=== PATIENT | female | born 1995 | race Caucasian/White ===

== ENCOUNTER 2019-11-20 16:56 | Inpatient (IN) | payer SELFPAY ==
[~2019-11-20] VITALS: Ht 152.4 cm; Wt 91.2 kg
--- NOTE | 2019-11-20 17:00 | NUR ---
yany cct placed at patients room to do 05/31 sitter. pts belongings removed and placed in belongings bag. pt cooperative at this time.
[2019-11-20] MEDS ORDERED: SODIUM CHLORIDE 0.9% 1000ML 1,000 ML IV STA (17:19)
[2019-11-20] MEDS ORDERED: CHARCOAL/SORBITOL LIQD 25 GM/120 ML TUBE NG STA (17:19)
[2019-11-20] MEDS ORDERED: ACTIVATED CHARCOAL 25 GM/120 ML ONE (17:24)
[2019-11-20] MEDS ORDERED: ONDANSETRON HCL INJ 2MG/ML 2ML 2 MG/ML VIAL IV STA (17:28)
[2019-11-20] MEDS ORDERED: SODIUM CHLORIDE FLUSH 10 ML SYR INJ PRN (17:30)
--- NOTE | 2019-11-20 17:36 | Emergency Department Note ---
History of Present Illnes History of Present Illness Chief Complaint: suicidal attempt- took 30 pills of prozac 25 mg s/p transient new boyfriend left at a hotel History of Present Illness This is a 24 year old female. was doing well prior to this. pt just hitch a ride with stranger from [place] in exchange for valium. 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 Any updates have been documented here. Physical Exam Physical Exam CONSTITUTIONAL HENT EYES NECK PULMONARY CARDIOVASCULAR GASTROINTESTINAL GENITOURINARY SKIN MUSCULOSKELETAL NEUROLOGICAL PSYCHOLOGICAL Assessment & Plan Reassessment Reassessment POISON CONTROL WAS NOTIFIED AND SAID TO ADMIT TO ICU TO MONITOR PT FOR PROLONG QT INTERVAL/SEIZURES. . SPOKE TO DR SINGH AND ACCEPTED ADMISSION OF PT Assessment & Plan Final Impression: (1) Drug overdose (2) Suicide attempt Medications in the ED Charcoal 50 gm STK-MED ONCE .ROUTE ; Start 11/20/19 at 17:24; Stop 11/20/19 at 17:21; Status DC Sodium Chloride 10 ml PRN PRN INJ IV SITE FLUSH; Start 11/20/19 at 17:30; Stop 12/20/19 at 17:29; Status UNV Sodium Chloride 1,000 ml @ 150 mls/hr [id number] STAT IV ; Start 11/20/19 at 17:19; Stop 11/20/19 at 23:58 Charcoal/Sorbitol 50 gm NOW STAT NG ; Start 11/20/19 at 17:19; Stop 11/20/19 at 17:28; Status DC DASIA MARIN Nov 20, 2019 17:36
[2019-11-20] MEDS ORDERED: SODIUM CHLORIDE 0.9% 1000ML 1,000 ML ONE (18:33)
--- NOTE | 2019-11-20 18:33 | NUR ---
A [facility] FOUND ON THE FLOOR WITH PATIENTS NAME. PT STATES SHE WAS THERE EARLIER TODAY AND TOLD THEM SHE WAS SUICIDAL BUT AFTER BEING THERE FOR 3 HOURS PT LEFT AND CAME HERE. PT STATED SHE TOOK THE PILLS ON THE DRIVE TO HERE.
[2019-11-20] MEDS ORDERED: ONDANSETRON HCL INJ 2MG/ML 2ML 2 MG/ML VIAL IV PRN (19:30)
[2019-11-20] MEDS: SODIUM CHLORIDE 0.9% 1000ML 1,000 ML IV SCH (20:53)
[2019-11-21] VITALS (11 sets, daily range): BP systolic 89–117; BP diastolic 60–72
--- NOTE | 2019-11-21 01:00 | NUR ---
Received pt from ER. Pt is on suicide precautions, all items removed from room. EKG leads left on patient to monitor QT interval d/t potential effects from large quantity of Prozac taken. Pt is a 1:1 and being monitored closely. Pt in bed resting at this time.
[2019-11-21] MEDS: SODIUM CHLORIDE 0.9% 1000ML 1,000 ML IV SCH (03:37)
--- NOTE | 2019-11-21 07:06 | NUR ---
Rec'd patient supine in bed; no present concerns. Alert, oriented, aware of present location and situation. Pleasant and cooperative. SR on the ECG. Hemodynamicall stable and afebrile. Lung sounds clear. Patient resting, eyes closed.
--- NOTE | 2019-11-21 08:21 | NUR ---
GAVE PACKET OF INFORMATION WITH [facility] [employer] FOR ASSISTANCE WITH LOW TO NO INCOME TO PATIENT. RESOURCES THAT PATIENT MAY BE ABLE TO FOLLOW UP UPON DISCHARGE. PT EDUCATED ON EACH RESOURCE AND UNDERSTANDING HOW TO FOLLOW UP TO SEE IF QUALIFIED FOR EACH RESOURCE.
[2019-11-21] MEDS ORDERED: ONDANSETRON HCL INJ 2MG/ML 2ML 2 MG/ML VIAL IV PRN (12:15)
[2019-11-21] MEDS ORDERED: HYDRALAZINE HCL 20 MG/ML VIAL IV PRN (12:15)
[2019-11-21 13:47] LABS: BASOPHILS # (AUTO) 0.1 (0.0-0.1); BASOPHILS % 1.1 % (0.0-1.0); EOSINOPHILS # (AUTO) 0.5 (0.0-0.4); EOSINOPHILS % 6.5 % (0.0-6.0); HEMATOCRIT 36.6 % (34.2-44.1); HEMOGLOBIN 11.4 g/dL (12.0-16.0); LYMPHOCYTES # (AUTO) 2.5 (1.0-3.2); MEAN CORPUSCULAR HEMOGLOBIN 25.5 pg (28-32); MEAN CORPUSCULAR HGB CONC 31.1 g/dL (31-35); MEAN CORPUSCULAR VOLUME 81.9 fL (81-99); MONOCYTES # (AUTO) 0.4 (0.2-0.8); MONOCYTES % 5.8 % (4.4-11.3); NEUTROPHILS # (AUTO) 3.9 (2.1-6.9); NEUTROPHILS % 52.3 % (38.7-80.0); PLATELET COUNT 246 x10e3/uL (140-360); RED BLOOD COUNT 4.47 x10e6/uL (3.6-5.1); RED CELL DISTRIBUTION WIDTH 15.4 % (11.7-14.4)
[2019-11-21] MEDS: NICOTINE 21 MG/EA PATCH TOP PRN (14:00)
[2019-11-21] MEDS: ACETAMINOPHEN 325 MG TAB PO PRN (14:01)
[2019-11-21 14:08] LABS: ALANINE AMINOTRANSFERASE 14 IU/L (0-55); ALBUMIN 3.2 g/dL (3.5-5.0); ALBUMIN/GLOBULIN RATIO 1.1 (0.8-2.0); ALKALINE PHOSPHATASE 56 IU/L (40-150); ANION GAP 9.6 mmol/L (8-16); BLOOD UREA NITROGEN 7 mg/dL (7-26); BUN/CREATININE RATIO 11 (6-25); CARBON DIOXIDE 24 mmol/L (22-29); CHLORIDE 110 mmol/L (98-107); CREATININE, SERUM 0.63 mg/dL (0.57-1.11); EST GLOMERULAR FILTRATION RATE > 60 ML/MIN (60-); GLUCOSE 103 mg/dL (74-118); POTASSIUM 3.6 mmol/L (3.5-5.1); SODIUM 140 mmol/L (136-145)
--- NOTE | 2019-11-21 15:18 | NUR ---
Per Dr Helene Ochoa, patient is medically stable to be transferred to a psychiatric facility. Spoke with [facility]ison [facility], who states the case is closed, no holds required from them. Spoke with the MAT team and they are en route to assess the patient.
--- NOTE | 2019-11-21 15:36 | NUR ---
SPOKE WITH NURSE, DOCTOR MEDICALLY CLEARED CALLED [facility], THEY CLEARED NURSE CALLED MAT TEAM, I CALL AND CONFIRMED AND SPOKE WITH MERLYN AT THE [facility] AND SHE STATES THE COVID RESULTS ARE NECESSARY TO SEND OUT THE SENIOR UI DESIGNER, SHE STATES SHE IS NOT SYMPTOMATIC AND PASSES THE SCREENING QUESTIONS, WILL SEND RESULTS TO CONFIRM. WILL KEEP IN CONTACT WITH MAT TEAM TO FOLLOW THROUGH ON PLACEMENT IF THEY DETERMINE IT IS NEEDED.
[2019-11-21] MEDS: THIAMINE HCL 100 MG TAB PO SCH (16:03)
[2019-11-21] MEDS: FAMOTIDINE 20 MG/2 ML VIAL IV SCH (16:03)
[2019-11-21] MEDS: MULTIVITAMINS/MINERALS TAB PO SCH (16:03)
[2019-11-21 17:12] LABS: PREGNANCY TEST, URINE NEGATIVE (NEGATIVE)
[2019-11-21 17:15] LABS: AMPHETAMINES SCREEN,URINE NEGATIVE (NEGATIVE); BENZODIAZEPINES SCREEN,URINE POSITIVE (NEGATIVE); PHENCYCLIDINE SCREEN,URINE NEGATIVE (NEGATIVE)
[2019-11-21] MEDS ORDERED: CHLORDIAZEPOXIDE HCL 25 MG CAP PO SCH (18:00)
--- NOTE | 2019-11-21 18:45 | NUR ---
MAT Team has patient on waiting list at [facility]. Report called to [facility] for Room 114. Awaiting sitter to receive patient due to suicidal risk.
--- NOTE | 2019-11-21 18:47 | Consultation ---
DATE OF CONSULTATION: Pulmonary Critical Care Consultation CHIEF COMPLAINT: Overdose with Prozac. HISTORY OF PRESENT ILLNESS: The patient is 24-year-old woman. She has a history of some psychiatric problems before including depression. She has attempted suicide before. She also has had some problem with substance abuse. She reports recent loss in her life. Apparently, her brother in 2011. She also had a sister, who in 2018. Her best friend recently from a heroin overdose. She traveled from [place] to [place] with a friend, who apparently abandoned her in the hotel room. She went to [facility] yesterday with suicidal ideation, but remained in the waiting area. She felt the wait was too long and went home. She subsequently took 25 Prozac tablets at about 4:45 yesterday. She then came to our emergency department. She was evaluated in the emergency department and then admitted to the intensive care unit for monitoring. She has remained on telemetry, but has not had any arrhythmias. She still reports some anxiety and has some nervousness. She still feels depressed. PAST MEDICAL HISTORY: 1. Depression. 2. Prior suicide attempts. PAST SURGICAL HISTORY: Tonsillectomy. FAMILY HISTORY: She has a history of suicide in her family. SOCIAL HISTORY: The patient smokes about pack of cigarettes a day. She drinks about half a pint a day and quit 2 days ago. She was a drug user previously, but has not been using drugs recently. ALLERGIES: NO KNOWN DRUG ALLERGIES. REVIEW OF SYSTEMS: The patient is afebrile. She has no headache. She has no neck pain. She has no chest pain. She is not complaining of cough or difficulty breathing. She has no abdominal pain. She has no nausea or vomiting. She has no leg edema. PHYSICAL EXAMINATION: VITAL SIGNS: The patient is afebrile. Vital signs are stable. She does have some anxiety. HEENT: Shows no facial swelling or erythema. CARDIAC: Reveals regular rate and rhythm with normal S1 and S2. LUNGS: Auscultation of lungs reveals clear breath sounds bilaterally. There is no wheezing. ABDOMEN: Soft and nontender. There is no rebound or guarding. EXTREMITIES: Shows no leg edema or calf tenderness. There is no cyanosis or clubbing. SKIN: Shows no rashes. NEUROLOGICAL: Shows no focal abnormalities. LABORATORY DATA: BUN to creatinine ratio is normal. Other electrolytes within normal limits. Albumin is 3.2. White blood cell count is 7.4. The hemoglobin is 11.4. The platelet count is 246. IMPRESSION: 1. Drug overdose with Prozac. 2. Suicidal ideation. 3. Alcohol use. PLAN: 1. The patient is medically cleared for transfer to a psychiatric facility. She remains with suicidal ideation. 2. The patient requires some multivitamins of thiamin. 3. Librium as needed. 4. Await evaluation by Psychiatry. MD KRISHNA Hendrickson/NAA /[id number]
--- NOTE | 2019-11-21 19:10 | NUR ---
BEDSIDE SHIFT REPORT GIVEN BY DAY RN. PT IS ALERT AND ORIENTED X3. PT OVERDOSE ON PROZAC- WAS IN MICU NOW TRANSFERRED TO 114 WITH SITTER FOR SUICIDE PRECAUTIONS.RESPIRATIONS ARE EVEN AND UNLABORED. TELE ON . 20 G SL RT AC. PT DENIES PAIN. PT VOIDING WITHOUT DIFFICULTY. PT WATCHING TV. CALL LIGHT WITHIN REACH.
--- NOTE | 2019-11-21 19:38 | Consultation ---
DATE OF CONSULTATION: 11/21/2019 Psychiatric Consultation REASON FOR CONSULTATION: To evaluate patient's suicide attempt. HISTORY OF PRESENT ILLNESS: The patient is a 24-year-old female, admitted to the hospital for drug overdose and suicide attempt. Psychiatric consultation is called to evaluate the patient for depression and suicide attempt and drug abuse. Upon evaluation today, patient is found to be sitting in the ICU room. She is alert, awake, and oriented to situation. Sitter is in the room with her. She is alert, awake, and oriented to situation, is calm and cooperative. The patient admits that she has been feeling very depressed. She admits to overdose on 25 pills of Prozac to take her life due to multiple reasons, namely that she was having difficulty getting clean from alcohol and drugs. She recently moved from [place] two days ago to meet a raul, who offered her Valium, he left her. The patient felt overwhelmed and frustrated. She took the Xanax and was driving after she was at hospital, left [place] and drove to [facility]. The patient reports depression. Denies any suicidal or homicidal ideation at this time. Reports intermittent sleep issues, but denies any appetite issues. She denies any hallucinations. The patient claims she drinks five days a week, about half a pint to a pint of vodka a day, last drink was yesterday. She has history of bipolar, attempted suicide 13 times in the past. She has family history of psych issues. Her brother committed suicide. She is willing to go to psychiatric hospital. PAST PSYCHIATRIC HISTORY: The patient has history of bipolar. She attempted suicide 13 time. Drinks alcohol 5 days a week about half a pint to a pint a day of vodka, last drink was yesterday. She takes her Valium, which is not hers and also marijuana. FAMILY HISTORY: Father committed suicide. SOCIAL HISTORY: The patient is currently homeless. MENTAL STATUS EXAM: The patient is a young female. She is alert, awake, and oriented to situation. Mood is depressed. Affect congruent with mood. Psychomotor status retardation. Denies suicidal or homicidal ideation. Denies any hallucination. Thought process is concrete. No delusion elicited. Insight and judgment are fair. Memory appears to be grossly intact. CURRENT MEDICATIONS: 1. Sodium chloride. 2. Famotidine. 3. Hydralazine. 4. Ondansetron. 5. Acetaminophen. 6. Ativan 1 mg IV q.4 hours p.r.n. for withdrawal. 7. Nicotine. 8. Librium 25 q.6 hours schedule. LABORATORY DATA: Current lab pending. ASSESSMENT: 1. Bipolar I disorder, recurrent, depressed, severe without psychosis. 2. Alcohol abuse/dependence. 3. Benzo abuse. PLAN: 1. Continue with Librium 25 mg p.o. q.6 hours schedule and plan to taper. 2. Continue Ativan 1 mg IV q.4 hours as needed. 3. Add Seroquel 25 mg p.o. q.6 hours as needed. 4. Plan to adjust medication for bipolar. 5. Recommend total abstinence from alcohol and drugs. 6. Recommend inpatient psychiatry once she is medically cleared. 7. Discussed with nursing staff. 8. Discussed with the patient, she agrees. 9. Monitor for any signs of withdrawal or QT prolongation due to overdose and alcohol abuse. Dictated by Thea Crabtree PA-C MD LUZ Dugan/MODL /[id number]
[2019-11-21] MEDS: CHLORDIAZEPOXIDE HCL 25 MG CAP PO SCH (22:12)
[2019-11-22 04:00] VITALS: BP 102/69
[2019-11-22 05:26] LABS: BASOPHILS # (AUTO) 0.1 (0.0-0.1); EOSINOPHILS # (AUTO) 0.5 (0.0-0.4); EOSINOPHILS % 5.5 % (0.0-6.0); HEMOGLOBIN 11.6 g/dL (12.0-16.0); LYMPHOCYTES # (AUTO) 3.9 (1.0-3.2); LYMPHOCYTES % 47.6 % (18.0-39.1); MEAN CORPUSCULAR HGB CONC 31.4 g/dL (31-35); MONOCYTES # (AUTO) 0.5 (0.2-0.8); MONOCYTES % 6.2 % (4.4-11.3); NEUTROPHILS # (AUTO) 3.2 (2.1-6.9); NEUTROPHILS % 39.5 % (38.7-80.0); PLATELET COUNT 238 x10e3/uL (140-360); RED BLOOD COUNT 4.46 x10e6/uL (3.6-5.1); RED CELL DISTRIBUTION WIDTH 15.1 % (11.7-14.4)
[2019-11-22 06:09] LABS: ALANINE AMINOTRANSFERASE 14 IU/L (0-55); ALBUMIN 3.3 g/dL (3.5-5.0); ALBUMIN/GLOBULIN RATIO 1.1 (0.8-2.0); ALKALINE PHOSPHATASE 58 IU/L (40-150); ANION GAP 8.7 mmol/L (8-16); BLOOD UREA NITROGEN 8 mg/dL (7-26); BUN/CREATININE RATIO 11 (6-25); CALCIUM 8.3 mg/dL (8.4-10.2); CARBON DIOXIDE 24 mmol/L (22-29); CHLORIDE 108 mmol/L (98-107); CREATININE, SERUM 0.71 mg/dL (0.57-1.11); EST GLOMERULAR FILTRATION RATE > 60 ML/MIN (60-); GLUCOSE 94 mg/dL (74-118); POTASSIUM 3.7 mmol/L (3.5-5.1); SODIUM 137 mmol/L (136-145)
[2019-11-22] MEDS: CHLORDIAZEPOXIDE HCL 25 MG CAP PO SCH ×3 (06:30→21:13)
[2019-11-22 06:43] LABS: THYROID STIMULATING HORMONE 0.581 uIU/mL (0.350-4.940)
--- NOTE | 2019-11-22 07:00 | NUR ---
BEDSIDE SHIFT REPORT RECEIVED PT IN STABLE CONDITION DENEIS PAIN AT THIS TIME, UPDATED ON POC VOICED UNDERSTANDING, CALL LIGHT IN REACH WILL CONTINUE TO MONITOR
[2019-11-22 07:26] VITALS: BP 107/70
--- NOTE | 2019-11-22 08:04 | NUR ---
SPOKE WITH MERLYN TO GET UPDATE, SHE STATES NO H AND P, FAXED TO [phone]. RECEIVED CONFIRMATION, SHE STATES WILL GET NURSES PHONE TO PHONE WITH [facility].
[2019-11-22 08:09] VITALS: BP 107/70
[2019-11-22] MEDS: FAMOTIDINE 20 MG/2 ML VIAL IV SCH ×2 (08:39→16:46)
[2019-11-22] MEDS: THIAMINE HCL 100 MG TAB PO SCH (08:39)
[2019-11-22 12:05] VITALS: BP 107/62
[2019-11-22] MEDS: LORAZEPAM INJ 2 MG/ML VIAL IV PRN (12:39)
--- NOTE | 2019-11-22 15:26 | NUR ---
CALLED MAT TEAM SPOKE WITH NINFA HE STATES THAT STILL PENDING BED [facility], HAVE ALL DOCUMENTS
[2019-11-22 15:31] VITALS: BP 109/70
[2019-11-22] MEDS: MULTIVITAMINS/MINERALS TAB PO SCH (16:46)
--- NOTE | 2019-11-22 19:21 | NUR ---
Mitzy with the MAT team called to verify pt still here and informed this nurse that there is still no bed available at this time at [facility] will update when bed available
[2019-11-22 20:00] VITALS: BP 98/60
[2019-11-22] MEDS: ACETAMINOPHEN 325 MG TAB PO PRN (21:13)
[2019-11-22] MEDS: QUETIAPINE FUMARATE 25 MG TAB PO SCH (21:13)
[2019-11-23] VITALS (9 sets, daily range): BP systolic 90–142; BP diastolic 54–73
[2019-11-23 05:39] LABS: BASOPHILS # (AUTO) 0.1 (0.0-0.1); BASOPHILS % 0.9 % (0.0-1.0); EOSINOPHILS # (AUTO) 0.4 (0.0-0.4); HEMATOCRIT 36.5 % (34.2-44.1); HEMOGLOBIN 11.6 g/dL (12.0-16.0); LYMPHOCYTES % 51.3 % (18.0-39.1); MEAN CORPUSCULAR HEMOGLOBIN 25.4 pg (28-32); MEAN CORPUSCULAR HGB CONC 31.8 g/dL (31-35); MEAN CORPUSCULAR VOLUME 79.9 fL (81-99); MONOCYTES # (AUTO) 0.4 (0.2-0.8); MONOCYTES % 5.5 % (4.4-11.3); NEUTROPHILS # (AUTO) 2.9 (2.1-6.9); PLATELET COUNT 246 x10e3/uL (140-360); RED BLOOD COUNT 4.57 x10e6/uL (3.6-5.1); RED CELL DISTRIBUTION WIDTH 14.9 % (11.7-14.4)
[2019-11-23 05:57] LABS: ALANINE AMINOTRANSFERASE 13 IU/L (0-55); ALBUMIN 3.4 g/dL (3.5-5.0); ALBUMIN/GLOBULIN RATIO 1.2 (0.8-2.0); ALKALINE PHOSPHATASE 57 IU/L (40-150); ANION GAP 8.7 mmol/L (8-16); BLOOD UREA NITROGEN 9 mg/dL (7-26); BUN/CREATININE RATIO 13 (6-25); CALCIUM 8.5 mg/dL (8.4-10.2); CARBON DIOXIDE 26 mmol/L (22-29); CHLORIDE 107 mmol/L (98-107); CREATININE, SERUM 0.72 mg/dL (0.57-1.11); EST GLOMERULAR FILTRATION RATE > 60 ML/MIN (60-); GLUCOSE 91 mg/dL (74-118); POTASSIUM 3.7 mmol/L (3.5-5.1); SODIUM 138 mmol/L (136-145)
[2019-11-23] MEDS: CHLORDIAZEPOXIDE HCL 25 MG CAP PO SCH ×3 (06:50→21:17)
--- NOTE | 2019-11-23 07:00 | NUR ---
BEDSIDE SHIFT REPORT RECEIVED PT IN STABLE CONDITION, DENIES PAIN AT THIS TIME, UPDATED ON POC VOICED UNDERSTANDING, R AC 20G NO SS OF INFILTRATION NOTED, NO OTHER CO VOICED CALL LIGHT IN REACH WILL CONTINUE TO MONITOR
--- NOTE | 2019-11-23 07:06 | NUR ---
REPORT GIVEN TO DAYSHIFT NURSE. RESTING IN BED. AAOX3. NO SIGNS IV INFILTRATION. BED LOCKED AND IN LOW POSITION. CALL LIGHT WITHIN REACH.
[2019-11-23] MEDS: THIAMINE HCL 100 MG TAB PO SCH (08:47)
[2019-11-23] MEDS: FAMOTIDINE 20 MG/2 ML VIAL IV SCH ×2 (08:47→17:10)
[2019-11-23] MEDS: NICOTINE 21 MG/EA PATCH TOP PRN (10:50)
[2019-11-23] MEDS: MULTIVITAMINS/MINERALS TAB PO SCH (17:10)
[2019-11-23] MEDS: LORAZEPAM INJ 2 MG/ML VIAL IV PRN (17:17)
--- NOTE | 2019-11-23 19:12 | NUR ---
report given to oncoming rn, pt in stable condition, denies pain at this time, call light in reach will continue ot monitor
[2019-11-23] MEDS: QUETIAPINE FUMARATE 25 MG TAB PO SCH (21:17)
[2019-11-24] VITALS (7 sets, daily range): BP systolic 97–116; BP diastolic 57–72
[2019-11-24 05:17] LABS: BASOPHILS # (AUTO) 0.1 (0.0-0.1); EOSINOPHILS # (AUTO) 0.3 (0.0-0.4); EOSINOPHILS % 3.8 % (0.0-6.0); HEMOGLOBIN 11.9 g/dL (12.0-16.0); LYMPHOCYTES # (AUTO) 3.2 (1.0-3.2); MEAN CORPUSCULAR HEMOGLOBIN 25.9 pg (28-32); MEAN CORPUSCULAR HGB CONC 32.2 g/dL (31-35); MEAN CORPUSCULAR VOLUME 80.4 fL (81-99); MONOCYTES # (AUTO) 0.6 (0.2-0.8); MONOCYTES % 6.2 % (4.4-11.3); NEUTROPHILS # (AUTO) 4.8 (2.1-6.9); NEUTROPHILS % 52.8 % (38.7-80.0); PLATELET COUNT 254 x10e3/uL (140-360)
[2019-11-24 05:42] LABS: ALANINE AMINOTRANSFERASE 13 IU/L (0-55); ALBUMIN 3.4 g/dL (3.5-5.0); ALBUMIN/GLOBULIN RATIO 1.2 (0.8-2.0); ALKALINE PHOSPHATASE 55 IU/L (40-150); ANION GAP 10.5 mmol/L (8-16); BLOOD UREA NITROGEN 10 mg/dL (7-26); BUN/CREATININE RATIO 15 (6-25); CALCIUM 8.8 mg/dL (8.4-10.2); CARBON DIOXIDE 25 mmol/L (22-29); CHLORIDE 107 mmol/L (98-107); CREATININE, SERUM 0.66 mg/dL (0.57-1.11); EST GLOMERULAR FILTRATION RATE > 60 ML/MIN (60-); GLUCOSE 92 mg/dL (74-118); POTASSIUM 3.5 mmol/L (3.5-5.1); SODIUM 139 mmol/L (136-145)
--- NOTE | 2019-11-24 07:09 | NUR ---
report given to day nurse. patient is resting comfortably in the bed. bed is in the lowest position and call light is within reach.
[2019-11-24] MEDS: NICOTINE 21 MG/EA PATCH TOP PRN (08:59)
[2019-11-24] MEDS: CHLORDIAZEPOXIDE HCL 25 MG CAP PO SCH (08:59)
[2019-11-24] MEDS: THIAMINE HCL 100 MG TAB PO SCH (08:59)
[2019-11-24] MEDS: FAMOTIDINE 20 MG/2 ML VIAL IV SCH (09:00)
[2019-11-24] MEDS ORDERED: ACETAMINOPHEN325 M1 PO (14:23)
--- NOTE | 2019-11-24 21:21 | Discharge Summary ---
ADMISSION DIAGNOSES: Suicide attempt, tobacco use, EtOH abuse. DISCHARGE DIAGNOSES: Suicide attempt, tobacco use, EtOH abuse. HISTORY: PTSD, depression, anxiety, previous suicide attempt 13 times. SURGICAL HISTORY: Tonsillectomy. FAMILY HISTORY: Noncontributory. SOCIAL HISTORY: The patient admits to smoking 1 pack of cigarettes a day. Drinking half to 1 pint of alcohol every 2 days and says that she has used heroin and meth in the past, but stopped a few months ago. She also recently admits to smoking marijuana. HOSPITAL COURSE: A 24-year-old female admits with status post suicide attempt after taking about 25 Prozac's. She drank them with beer and smoking marijuana. She has attempted suicide 13 times before. She is actually from a different state and got stuck in [place] after driving someone here as a favor. On admission, Psych was consulted and one-to-one sitter was ordered. The patient's lab and tele were within normal limits. Poison Control said that the patient is medically clear for discharge as her QT interval is normal. She was started on Librium, lorazepam p.r.n., and Seroquel per Psych recommendation. Psych also recommends inpatient rehab and so does the MAT team. Inpatient rehab was approved and the patient is transferring to [facility]. The patient understands instructions and agrees to plan. Vital signs stable, the patient is afebrile. Dictated by Marbella Pulido NP Quinten Davis MD CORIE/MODL /[id number]
--- NOTE | 2019-11-27 23:45 | Progress Note ---
DATE: 11/22/2019 Psychiatric Progress Note SUBJECTIVE: The patient evaluated and events noted. The patient is in room. She is alert, awake, oriented to situation. She is doing better. Sitter is in the room. She is awaiting for inpatient psychiatry. She denies any suicidal or homicidal ideation. She denies any hallucination. She denies any side effects to medication. ASSESSMENT: Bipolar depression and alcohol dependency/withdrawal. PLAN: 1. To continue Librium 25 mg p.o. q.8 hours. 2. Continue with Seroquel 25 mg p.o. at bedtime. 3. Monitor for mood. 4. The patient is waiting for inpatient psychiatry. Dictated by Thea Crabtree PA-C Juan Ramon Singh MD QTV/MODL /[id number]
--- NOTE | 2019-11-27 23:55 | Progress Note ---
DATE: 11/23/2019 Psychiatric Progress Note SUBJECTIVE: The patient evaluated and events noted. The patient is in a room. She is alert, awake, and oriented to situation. Sitter is in the room. She reports feeling okay. She is anxious and wants to know when she is going to be transferred. She has no tremors. She is not agitated. She denies any suicidal or homicidal ideation. She denies any hallucination. She denies any side effects to medication. ASSESSMENT: 1. Bipolar disorder, recurrent, depressed, without psychosis, moderate. 2. Alcohol abuse/dependency. PLAN: 1. Reduce Librium. 2. Continue with the medication and supportive therapy. Dictated by Thea Crabtree PA-C Juan Ramon Singh MD QTV/MODL /[id number]
--- NOTE | 2019-11-28 00:20 | Progress Note ---
DATE: 11/24/2019 Psychiatric Progress Note SUBJECTIVE: The patient evaluated and events noted. The patient is in the room. She is alert, awake, and oriented to situation. She is calm. She denies any suicidal or homicidal ideation. She denies any hallucination. She denies any side effects from medication. ASSESSMENT: 1. Bipolar disorder, recurrent, moderate without psychosis. 2. Alcohol abuse/dependency. 3. Continue with Librium 25 mg p.o. q.12. as it was changed yesterday. 4. Continue Seroquel as scheduled. 5. Monitor for mood. 6. Supportive therapy. 7. Continue other medication. Dictated by Thea Crabtree PA-C Juan Ramon Singh MD QTV/MODL /[id number]
== END 2019-11-24 16:17 | DRG 918 ==
LOC: FSED 16:56 → ERHOLD 22:09 → ICU 11-21 01:08 → OBSVTOIN 11-21 08:08 → MED/SURG 11-21 19:11
PROVIDERS: ADMIT Internal Medicine; ATTEND Internal Medicine
DX: T43.222A Poisoning by selective serotonin reuptake inhibitors, intentional self-harm, initial encounter (principal); F31.4 Bipolar disorder, current episode depressed, severe, without psychotic features; F10.230 Alcohol dependence with withdrawal, uncomplicated; F43.10 Post-traumatic stress disorder, unspecified; F41.9 Anxiety disorder, unspecified; Z72.0 Tobacco use; F13.10 Sedative, hypnotic or anxiolytic abuse, uncomplicated; Z11.59 Encounter for screening for other viral diseases
CPT/HCPCS: 36415; 80053; 80307; 80320; 80329; 81003; 81025; 83036; 84443; 85025; 87635; 93005; 99251; 99285; G0378; J2060; J2405; J3411; J7030